=== PATIENT | female | born 1950 | race Two or more races ===

== ENCOUNTER 2022-10-27 08:47 | Outpatient (CLI) | payer OTHER | END 2022-10-27 08:53 | disposition home or self-care (01) | LOC: TOM 08:47 | PROVIDERS: ATTEND Internal Medicine Gastroenterology | DX: K59.00 Constipation, unspecified (principal); K64.9 Unspecified hemorrhoids; K57.30 Diverticulosis of large intestine without perforation or abscess without bleeding; R19.5 Other fecal abnormalities ==